=== PATIENT | male | born 1975 | race Caucasian/White ===

== ENCOUNTER 2017-01-23 18:23 | Emergency (ER) | payer BC ==
[2017-01-23] MEDS ORDERED: cefTRIAXone 1,000 MG in Lidocaine 1% 4 ML IM ONE (19:15)
[2017-01-23] MEDS ORDERED: Diphtheria,Pertussis(Acell),Tetanus Vaccine 0.5 ML Syringe IM ONE (19:15)
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
[2017-01-23] MEDS ORDERED: Lidocaine 1% 20 ML MDV ONE (19:45)
[2017-01-23 20:15] LABS: CHLORIDE,CL 105 mmol/L (98-110); SODIUM,NA 140 mmol/L (136-146)
[2017-01-23] MEDS ORDERED: Bacitracin Oint 1 GM U/D Packet ONE (21:08)
[2017-01-23 21:44] VITALS: BP 135/94
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
--- NOTE | 2017-01-25 11:06 | CR ---
EXAM DATE: 01/23/17 PATIENT'S AGE: 41 Patient: ABELINO BURKS Facility: [place], [place] Site . Site : 1975 Study: XRay Pelvis [id number]/7/2017 8:26:13 PM Ordering Physician: Erickson Marie Final Report: HISTORY: Pain. Comparison: None. Findings: The hip joints are preserved. No evidence for acute fracture or dislocation. Soft tissues are within normal. Dictated by Vivian Rothman MD @ Jan 23 2017 8:57PM (Electronic Signature) Report Signed by Proxy. [facility]
--- NOTE | 2017-01-25 11:07 | CR ---
EXAM DATE: 01/23/17 PATIENT'S AGE: 41 Patient: ABELINO BURKS Facility: [place], [place] Site . Site : 1975 Study: XRay Chest [id number]/7/2017 8:26:54 PM Ordering Physician: Erickson Marie Final Report: HISTORY: Pain. Comparison: None. Findings: Single frontal view of the chest. There is a round dense nodule in the right upper lobe suggestive of a granuloma. This could be confirmed with CT. The lungs are otherwise clear. Heart size and pulmonary vascularity are within normal limits. The bony thorax is intact. Dictated by Vivian Rothman MD @ Jan 23 2017 8:57PM (Electronic Signature) Report Signed by Proxy. [facility]
--- NOTE | 2017-01-25 11:08 | CR ---
EXAM DATE: 01/23/17 PATIENT'S AGE: 41 Patient: ABELINO BURKS Facility: [place], [place] Site . Site : 1975 Study: XRay Extremity Right hand [id number]/7/2017 9:00:13 PM Ordering Physician: Erickson Marie Final Report: INDICATION: Hand injury. Technique: 2 views right hand. Findings: Old fracture deformities involving the right 2nd, 4th and 5th metacarpals. Deformity of the distal right radius may be related to prior trauma or fracture. Mild to moderately displaced acute displaced fracture involving the base of the right 1st proximal phalanx resulting in a 1.1 cm free fracture fragment. Prominent soft tissue swelling in the right hand between the right thumb and index finger. Remainder negative. Dictated by Blade Best MD @ Jan 23 2017 9:19PM (Electronic Signature) Report Signed by Proxy. [facility]
== END 2017-01-23 21:30 ==
LOC: MW.ED 18:23
DX: S62.511A Displaced fracture of proximal phalanx of right thumb, initial encounter for closed fracture (principal); S61.411A Laceration without foreign body of right hand, initial encounter; S00.81XA Abrasion of other part of head, initial encounter; Z23 Encounter for immunization; F10.120 Alcohol abuse with intoxication, uncomplicated; V23.4XXA Motorcycle driver injured in collision with car, pick-up truck or van in traffic accident, initial encounter
CPT/HCPCS: 12002; 36415; 70450; 71010; 72125; 72170; 73120; 80053; 80305; 81001; 85025; 90471; 90715; 96372; 99285; G0480; J0696; L3807; 99283

== ENCOUNTER 2017-03-25 06:39 | Day surgery (SDC) | payer BC ==
[~2017-03-25 06:39] MED LIST: Sodium Chloride 0.9% 10 ML Syringe FLUSH PRN; Sodium Chloride 0.9% 2.5 ML Syringe FLUSH PRN; ceFAZolin 2 GM in Premix Bag 1 BAG IV ONE
[2017-03-25] MEDS ORDERED: Albuterol 0.083% 2.5 MG/3 ML Neb Soln NEB ONE (07:06)
[2017-03-25] MEDS ORDERED: Bupivacaine 0.5% 30 ML SDV ONE (07:18)
[2017-03-25] MEDS ORDERED: ceFAZolin 1 GM Vial ONE (07:18)
--- NOTE | 2017-03-25 07:23 | PCM.PREANE ---
Preanesthetic Assessment - Anesthesia/Transfusion/Family Hx Anesthesia History: Prior Anesthesia Without Reaction (wisdom teeth extractions) Family History of Anesthesia Reaction: No Transfusion History: No Prior Transfusion(s) - Review of Systems General: No Symptoms Pulmonary: No Symptoms Cardiovascular: No Symptoms Gastrointestinal: No Symptoms Neurological: No Symptoms Other: Reports: None - Physical Assessment NPO Status Date: 03/24/17 Height: 1.85 m Weight: 112.945 kg ASA Class: 2 Mental Status: Alert & Oriented x3 Airway Class: Mallampati = 2 Dentition: Reports: Broken Tooth/Teeth ROM/Head Extension: Full Lungs: Normal Respiratory Effort, Wheezing (some prolongued expiration and very few exp wheezes) Cardiovascular: Regular Rate, Regular Rhythm Other: full uribe, thick neck, snores at night - Allergies Allergies/Adverse Reactions: Allergies Allergy/AdvReac Type Severity Reaction Status Date / Time No Known Allergies Allergy Verified 01/23/17 19:07 - Anesthesia Plan Pre-Op Medication Ordered: Other (albuterol NMT) - Acknowledgements Anesthesia Type Planned: General Anesthesia Pt an Appropriate Candidate for the Planned Anesthesia: Yes Alternatives and Risks of Anesthesia Discussed w Pt/Guardian: Yes Pt/Guardian Understands and Agrees with Anesthesia Plan: Yes Additional Comments: PMH: presumed IRIS, smoker PreAnesthesia Questionnaire HEENT History: Reports: None Cardiovascular History: Reports: None Respiratory History: Reports: None Gastrointestinal History: Reports: None Genitourinary History: Reports: None Musculoskeletal History: Reports: None Neurological History: Reports: None Psychiatric History: Reports: None Endocrine/Metabolic History: Reports: Obesity/BMI 30+ Hematologic History: Reports: None Immunologic History: Reports: None Oncologic (Cancer) History: Reports: None Dermatologic History: Reports: None - Infectious Disease History Infectious Disease History: Reports: None - Past Surgical History Head Surgeries/Procedures: Reports: None HEENT Surgical History: Reports: Oral Surgery Other HEENT Surgeries/Procedures: wisdom teeth extraction - SUBSTANCE USE Smoking Status *Q: Current Every Day Smoker Tobacco Use Within Last Twelve Months: Cigarettes Recreational Drug Use History: No - HOME MEDS Home Medications: Home Meds . [No Known Home Meds] 01/23/17 [History] - CURRENT (IN HOUSE) MEDS Current Meds: Current Medications Sodium Chloride (Saline Flush) 10 ml FLUSH ASDIRECTED PRN PRN Reason: Keep Vein Open Sodium Chloride (Saline Flush) 2.5 ml FLUSH ASDIRECTED PRN PRN Reason: Keep Vein Open Discontinued Medications Albuterol (Proventil Neb Soln) 2.5 mg NEB ONETIME ONE Stop: 03/25/17 07:07 Cefazolin Sodium/Dextrose 2 gm (/ Premix) 50 mls @ 100 mls/hr IV ONETIME ONE Stop: 03/23/17 14:56
[2017-03-25] MEDS ORDERED: Lactated Ringers 1,000 ML IV SCH (07:30)
[2017-03-25] MEDS ORDERED: fentaNYL 100 MCG/2 ML SDV ONE (07:37)
[2017-03-25] MEDS ORDERED: Dexamethasone 4 MG/ML 5 ML MDV ONE (07:37)
[2017-03-25] MEDS ORDERED: Rocuronium 10 MG/ML 10 ML Syringe ONE (07:37)
[2017-03-25] MEDS ORDERED: Ondansetron 4 MG/2 ML SDV ONE (07:37)
[2017-03-25] MEDS ORDERED: Midazolam 1 MG/ML 2 ML SDV ONE (07:37)
[2017-03-25] MEDS ORDERED: Succinylcholine/Normal Saline 200 MG/10 ML Syringe ONE (07:37)
[2017-03-25] MEDS ORDERED: Propofol 200 MG/20 ML SDV ONE (07:37)
[2017-03-25] MEDS ORDERED: diphenhydrAMINE 50 MG/ML SDV ONE (08:01)
[2017-03-25] MEDS ORDERED: HYDROmorphone 2 MG/ML Syringe ONE (08:49)
[2017-03-25] MEDS ORDERED: Neostigmine Methylsulfate 1 MG/ML 5 ML Syringe ONE (09:00)
[2017-03-25] MEDS ORDERED: ePHEDrine 50 MG/ML SDV ONE (09:36)
[2017-03-25] MEDS ORDERED: Sodium Chloride 0.9% 20 ML ONE (09:37)
--- NOTE | 2017-03-25 09:51 | PCM.OPNOTE ---
- General Post-Op/Procedure Note Date of Surgery/Procedure: 03/25/17 Operative Procedure(s): Umbilical hernia Findings: 1cm fascial defect but baseball sized hernia sac containing omentum Pre Op Diagnosis: Umbilical hernia Post-Op Diagnosis: same Anesthesia Technique: General ET Tube Primary Surgeon: Melonie IBARRA in mLs: 25 Condition: Good
--- NOTE | 2017-03-25 11:05 | PCM.POSTAN ---
POST ANESTHESIA ASSESSMENT - MENTAL STATUS Mental Status: Alert, Oriented - RESPIRATORY Respiratory Status: Respiratory Rate WNL, Airway Patent, O2 Saturation Stable - CARDIOVASCULAR CV Status: Pulse Rate WNL, Blood Pressure Stable - GASTROINTESTINAL GI Status: No Symptoms - POST OP HYDRATION Hydration Status: Adequate & Stable
[2017-03-25 15:15] VITALS: BP 122/66
--- NOTE | 2017-03-25 17:01 | OR ---
SURGEON: LEWIS WOODRUFF MD DATE OF PROCEDURE: 03/25/2017 PREOPERATIVE DIAGNOSIS: Umbilical hernia. POSTOPERATIVE DIAGNOSIS: Umbilical hernia. PROCEDURE PERFORMED: Umbilical hernia repair with omentectomy. ANESTHESIA: General endotracheal anesthesia. FLUIDS: 2 L. URINE OUTPUT: Not applicable. ESTIMATED BLOOD LOSS: 25 mL. FINDINGS: 1 cm fascial defect just inferior to the umbilical stalk with a large hernia sac containing omentum. COMPLICATIONS: None. INDICATIONS: The patient is a 41-year-old male, who presents with an enlarging umbilical hernia. The patient was a heavy smoker, heavy drinker, and chewed Chewing tobacco. Since it was overall asymptomatic, I encouraged him to start smoking cessation plan and to stop drinking and establish primary care. The patient established primary care, quit drinking alcohol, quit chewing tobacco, and cut down significantly on his smoking. He came back to see me in clinic and was doing much better, but his umbilical hernia had continued to enlarge. A CT showed a small fat containing periumbilical hernia. A decision was made to perform a repair of this hernia. We discussed the procedure as well as expected perioperative course. We discussed the risks, including bleeding, infection, or damage to surrounding structures. The patient verbalized understanding and wishes to proceed. PROCEDURE IN DETAIL: The patient was brought into the OR and placed on the OR table in supine position. A time-out was completed verifying the patient's name, age, date of , allergies, and procedure to be performed. General endotracheal anesthesia was induced. The abdomen was prepped and draped in the usual standard fashion. Upon inspection the umbilical hernia appeared infraumbilical. A midline infraumbilical incision was made and I then extended around the umbilicus towards the right side. 0.5% Marcaine plain was used to anesthetize the tissues around this area. Cautery was used to dissect down to the level of subcutaneous fat. Immediately I encountered a very large hernia sac. Metzenbaum scissors and blunt dissection were used to dissect this hernia sac free from the surrounding subcutaneous fat. The hernia sac was approximately the size of a baseball. Care was taken to preserve the umbilical stalk which was at the 11 o'clock position along the hernia sac. Once the hernia sac was cleared of all surrounding tissue and down to the level of the fascia, I sharply entered it at its apex. The hernia sac was then dissected down to the level of fascia. The hernia sac contained a large amount of omentum. The fascial defect was approximately 1 cm in size. Using a Harmonic device, I resected the hernia sac free from the surrounding fascia and sent it to pathology. I attempted to reduce the omentum back into the abdomen, but given the small fascial defect and a large amount of omentum I was unable to do so. Harmonic device was used to transect about half of the omentum contained within the hernia sac. This was sent to pathology with the previously resected hernia sac. After resection of this omentum, I inspected my line of dissection and found it to be hemostatic. I was then able to easily reduce the remaining omentum into the abdomen without difficulty. The fascial defect measured 1 cm in diameter. The decision was made to close this primarily. 0 Ethibond sutures were placed in interrupted fashion along the fascia effectively closing it. Great care was taken to elevate the fascia to avoid any secondary injury to the underlying bowel. Once the defect was closed, I inspected my surrounding tissues for hemostasis. Hemostasis was achieved using electrocautery. Interrupted 3-0 Vicryl were used to bring the subcutaneous fat back together and to close the defect left by the hernia sac. The skin overlying the hernia sac appeared dusky and this was trimmed back to healthy well-vascularized appearing skin. The skin was then closed using running 4-0 Monocryl suture and interrupted stitches. Once my skin was closed, I reinspected my wound, but found an area of the infraumbilical skin that appeared somewhat ischemic. I took down my 4-0 suture and made a small triangular shaped incision along the umbilical skin thereby resecting the dusky appearing tissue. I then re-sutured this closed using a running and interrupted 4-0 Monocryl sutures. At the end of this closure of the skin, all appeared healthy and well perfused. Steri-Strips and sterile dressings were applied. The patient tolerated the procedure well and was taken to the PACU in stable condition. BERNABE LAWRENCE /[id number]
== END 2017-03-25 11:40 | disposition home or self-care (01) ==
LOC: MW.SDS 06:39
PROVIDERS: ATTEND Surgery
DX: K42.9 Umbilical hernia without obstruction or gangrene (principal); E78.5 Hyperlipidemia, unspecified; E66.9 Obesity, unspecified; F17.210 Nicotine dependence, cigarettes, uncomplicated; Z68.30 Body mass index [BMI] 30.0-30.9, adult
CPT/HCPCS: 49585; 88302; J1100; J1170; J1200; J2250; J2405; J3010; J7120; 00830; J0690; J2704

== ENCOUNTER 2017-12-02 10:08 | Observation (INO) | payer BC ==
[~2017-12-02 10:08] MED LIST changes: +Bupivacaine 0.5% 30 ML SDV ONE; +ceFAZolin 1 GM Vial ONE
[2017-12-02] MEDS: Lactated Ringers 1,000 ML IV SCH ×4 (10:50→21:50)
--- NOTE | 2017-12-02 11:23 | PCM.PREANE ---
Preanesthetic Assessment - Anesthesia/Transfusion/Family Hx Anesthesia History: Prior Anesthesia Without Reaction Family History of Anesthesia Reaction: No Transfusion History: No Prior Transfusion(s) Intubation History: Unknown - Review of Systems General: No Symptoms Pulmonary: No Symptoms Cardiovascular: No Symptoms Gastrointestinal: No Symptoms Neurological: No Symptoms Other: Reports: None - Physical Assessment O2 Sat by Pulse Oximetry: 97 Respiratory Rate: 16 Vital Signs: Last Vital Signs Temp 36.1 C 12/02/17 10:43 Pulse 71 12/02/17 10:43 Resp 16 12/02/17 10:43 BP 117/76 12/02/17 10:43 Pulse Ox 97 12/02/17 10:43 Height: 1.85 m Weight: 118.388 kg ASA Class: 2 Mental Status: Alert & Oriented x3 Airway Class: Mallampati = 2 Dentition: Reports: Normal Dentition Thyro-Mental Finger Breadths: 3 Mouth Opening Finger Breadths: 2 ROM/Head Extension: Full Lungs: Clear to Auscultation, Normal Respiratory Effort Cardiovascular: Regular Rate, Regular Rhythm - Allergies Allergies/Adverse Reactions: Allergies Allergy/AdvReac Type Severity Reaction Status Date / Time No Known Allergies Allergy Verified 12/02/17 10:52 - Blood Blood Available: No - Anesthesia Plan Pre-Op Medication Ordered: None - Acknowledgements Anesthesia Type Planned: General Anesthesia Pt an Appropriate Candidate for the Planned Anesthesia: Yes Alternatives and Risks of Anesthesia Discussed w Pt/Guardian: Yes Pt/Guardian Understands and Agrees with Anesthesia Plan: Yes PreAnesthesia Questionnaire HEENT History: Reports: Hard of Hearing Cardiovascular History: Reports: High Cholesterol Respiratory History: Reports: None Gastrointestinal History: Reports: None Genitourinary History: Reports: None Musculoskeletal History: Reports: Fracture Other Musculoskeletal History: hx of fx hand Neurological History: Reports: None Psychiatric History: Reports: None Endocrine/Metabolic History: Reports: Obesity/BMI 30+ Hematologic History: Reports: None Immunologic History: Reports: None Oncologic (Cancer) History: Reports: None Dermatologic History: Reports: None - Infectious Disease History Infectious Disease History: Reports: None - Past Surgical History Head Surgeries/Procedures: Reports: None HEENT Surgical History: Reports: Oral Surgery Other HEENT Surgeries/Procedures: wisdom teeth GI Surgical History: Reports: Other (See Below) Other GI Surgeries/Procedures: hx of Umbilical Hernia Repair (february - re- occured - SUBSTANCE USE Smoking Status *Q: Current Every Day Smoker (down to few cigarettes per day) Tobacco Use Within Last Twelve Months: Smokeless Tobacco Recreational Drug Use History: No - HOME MEDS Home Medications: Home Meds . [No Known Home Meds] 01/23/17 [History] - CURRENT (IN HOUSE) MEDS Current Meds: Current Medications Lactated Ringer's (Ringers, Lactated) 1,000 mls @ 125 mls/hr IV ASDIRECTED [facility] Last Admin: 12/02/17 10:50 Dose: 125 mls/hr Sodium Chloride (Saline Flush) 10 ml FLUSH ASDIRECTED PRN PRN Reason: Keep Vein Open Sodium Chloride (Saline Flush) 2.5 ml FLUSH ASDIRECTED PRN PRN Reason: Keep Vein Open Discontinued Medications Bupivacaine HCl (Marcaine 0.5%) Confirm Administered Dose 30 ml .ROUTE .STK-MED ONE Stop: 12/02/17 08:12 Cefazolin Sodium (Ancef) Confirm Administered Dose 1 gm .ROUTE .STK-MED ONE Stop: 12/02/17 08:11 Cefazolin Sodium/Dextrose 2 gm (/ Premix) 50 mls @ 100 mls/hr IV ONETIME ONE Stop: 11/29/17 09:09
[2017-12-02] MEDS ORDERED: Midazolam 1 MG/ML 2 ML SDV ONE (11:31)
[2017-12-02] MEDS ORDERED: fentaNYL 100 MCG/2 ML SDV ONE ×3 (11:31→13:44)
[2017-12-02] MEDS ORDERED: Lidocaine 2% 5 ML SDV ONE (11:31)
[2017-12-02] MEDS ORDERED: Propofol 200 MG/20 ML SDV ONE ×2 (11:31→12:51)
[2017-12-02] MEDS ORDERED: fentaNYL 250 MCG/5 ML SDV ONE (11:31)
[2017-12-02] MEDS ORDERED: Sodium Chloride 0.9% 20 ML ONE (11:40)
[2017-12-02] MEDS ORDERED: ceFAZolin 1 GM Vial ONE (11:40)
[2017-12-02] MEDS ORDERED: Ketorolac 30 MG/ML SDV ONE (11:41)
[2017-12-02] MEDS ORDERED: Ondansetron 4 MG/2 ML SDV ONE (11:41)
[2017-12-02] MEDS ORDERED: Rocuronium 10 MG/ML 10 ML Syringe ONE (11:41)
[2017-12-02] MEDS ORDERED: Sugammadex Sodium 200 MG/2 ML VIAL ONE (11:43)
[2017-12-02] MEDS ORDERED: ePHEDrine 50 MG/ML SDV ONE (12:15)
[2017-12-02] MEDS ORDERED: fentaNYL 100 MCG/2 ML SDV IVPUSH PRN (12:23)
[2017-12-02] MEDS ORDERED: Octyl 2-Cyanoacrylate 1 Tube ONE (13:59)
[2017-12-02] MEDS ORDERED: Acetaminophen 1,000 MG in Premix Bag 1 BAG IV ONE (14:30)
[2017-12-02] MEDS ORDERED: diphenhydrAMINE 50 MG/ML SDV IVPUSH PRN (14:31)
--- NOTE | 2017-12-02 14:31 | PCM.OPNOTE ---
- General Post-Op/Procedure Note Date of Surgery/Procedure: 12/02/17 Operative Procedure(s): Recurrent umbilical hernia repair Findings: 9 x 5 cm ventral/umbilical fascial defect. Hernia sac containing omentum and small bowel. Pre Op Diagnosis: Recurrent umbilical hernia Post-Op Diagnosis: same Anesthesia Technique: General ET Tube Primary Surgeon: Melonie Day Fluid Replacement, Intraop: 2,700 Output, Urine Amount: 150 EBL in mLs: 50 Surgical Drain/Tube Type: Jose Mckinney Flat Drain (10Fr) Condition: Good
[2017-12-02] MEDS ORDERED: HYDROmorphone/Normal Saline 6 MG/30 ML PCA Vial IV PRN (14:38)
[2017-12-02] MEDS ORDERED: Morphine PF 30 MG/30 ML PCA Vial ONE (15:03)
[2017-12-02] MEDS: Morphine PF 30 MG/30 ML PCA Vial IV SCH ×2 (15:10→23:48)
--- NOTE | 2017-12-02 15:18 | PCM.POSTAN ---
POST ANESTHESIA ASSESSMENT - MENTAL STATUS Mental Status: Alert, Oriented Free Text/Narrative:: Resting comfortably Awakens easily to verbal - VITAL SIGNS Pulse Rate: 75 SaO2: 97 (2lpm NC) Resp Rate: 12 Blood Pressure: 129/80 - RESPIRATORY Respiratory Status: Respiratory Rate WNL, Airway Patent, O2 Saturation Stable, Supplemental Oxygen - CARDIOVASCULAR CV Status: Pulse Rate WNL, Blood Pressure Stable - GASTROINTESTINAL GI Status: No Symptoms - PAIN Pain Score: 4 - POST OP HYDRATION Hydration Status: Adequate & Stable
[2017-12-02] MEDS: Clindamycin Phosphate in D5W 600 MG in Premix Bag 1 BAG IV SCH ×4 (16:06→21:49)
--- NOTE | 2017-12-02 16:38 | OR ---
SURGEON: LEWIS WOODRUFF MD DATE OF PROCEDURE: 12/02/2017 PREOPERATIVE DIAGNOSIS: Recurrent umbilical hernia. POSTOPERATIVE DIAGNOSIS: Recurrent umbilical hernia. PROCEDURE PERFORMED: Recurrent umbilical hernia repair with mesh. PRODUCT DELIVERY SPECIALIST: Lewis Crowley M.D. FLUIDS: 2700 mL of crystalloid. URINE OUTPUT: 150 mL. ESTIMATED BLOOD LOSS: 50 mL. FINDINGS: 9 x 5 cm umbilical hernia defect that extended along the superior midline. Hernia sac contained omentum and small bowel. COMPLICATIONS: None. INDICATIONS: The patient is a 42-year-old male, who underwent an uncomplicated umbilical hernia repair last fall. This spring, the patient developed pain around his umbilicus and shortly thereafter noticed a large bulge. This bulge has been getting larger in size and became painful. A CT of the abdomen and pelvis showed a large ventral abdominal wall hernia around the umbilicus containing omentum and small bowel. The decision was made to proceed with an open umbilical hernia repair with mesh. The patient and I discussed the procedure, expected perioperative course, and risks including bleeding, infection, or damage to surrounding structures. The patient verbalized understanding and wishes to proceed. PROCEDURE IN DETAIL: The patient was brought to the OR and placed on the OR table in supine position. A time-out was completed verifying the patient's name, age, date of , allergies, and procedure to be performed. General endotracheal anesthesia was induced. The abdomen was prepped and draped in usual standard fashion. I anesthetized the midline with 0.5% Marcaine plain. A 10 blade was used to make a midline incision starting supraumbilically and going laterally around the right side of the umbilicus. Cautery was used and then dissected down to the level of the subcutaneous fat. I then dissected through this until I encountered the hernia sac. I then used Metzenbaum scissors to free up this hernia sac from the surrounding subcutaneous fat down to the level of fascia. Cautery was used to achieve hemostasis throughout this process. Once the hernia sac was completely freed from the surrounding tissues, it was entered sharply from the top. I encountered a stretched out peritoneal sac. This was opened with the Metzenbaum scissors and small bowel was encountered. The omentum and small bowel that were contained in the hernia sac fell away and reduced easily into the abdomen. The hernia sac was then excised from healthy fascia and passed off the field. The fascial defect was then measured and found to be 9 cm vertically and 5 cm horizontally. A 12 x 8 cm Dulex piece of mesh was brought into the field. It was placed as an underlay. Interrupted 0 Ethibond sutures were then placed in circumferential fashion around the mesh securing it to healthy fascia. Great care was taken to avoid damage to the underlying bowel and omentum. Once these were circumferentially in place, they were tied down. The overlying fascia was then closed with interrupted 0 Ethibond sutures to provide tissue coverage over the top of the mesh. The wound was irrigated. A 10-Azeri flat Jose Mckinney drain was placed over the fascial closure. This was brought out laterally through the skin and secured with ethibond sutures The umbilical skin was then tacked down to the fascia using a 3-0 Vicryl suture. The overlying subcutaneous fat and skin were closed in layers using interrupted 3-0 Vicryl sutures. The skin was then closed with a running 4-0 Monocryl stitch. Dermabond was applied. Sterile dressings were placed over the wound and bulb suction placed on the drain. The patient tolerated the procedure well and was transferred to the PACU in stable condition where an abdominal binder was placed. BERNABE LAWRENCE /[id number] [place]
[2017-12-02] MEDS: Cyclobenzaprine 10 MG Tab PO SCH (21:49)
--- NOTE | 2017-12-03 00:28 | PCM48HPAN ---
Post Anesthesia Note - EVALUATION WITHIN 48HRS OF ANESTHETIC Vital Signs in Normal Range: Yes Patient Participated in Evaluation: Yes Respiratory Function Stable: Yes Airway Patent: Yes Cardiovascular Function Stable: Yes Hydration Status Stable: Yes Pain Control Satisfactory: Yes Nausea and Vomiting Control Satisfactory: Yes Mental Status Recovered: Yes Pulse Rate: 75 Resp Rate: 20 Blood Pressure: 129/80
[2017-12-03] MEDS: Clindamycin Phosphate in D5W 600 MG in Premix Bag 1 BAG IV SCH ×4 (02:54→10:02)
[2017-12-03] MEDS: Cyclobenzaprine 10 MG Tab PO SCH ×2 (05:15→14:47)
[2017-12-03] MEDS ORDERED: Acetaminophen/oxyCODONE 325-10 MG Tab PO PRN (07:12)
[2017-12-03] MEDS ORDERED: Morphine 4 MG/ML Syringe IVPUSH PRN (07:12)
[2017-12-03] MEDS ORDERED: Enoxaparin 40 MG/0.4 ML Syringe SUBCUT SCH (07:15)
[2017-12-03] MEDS ORDERED: Polyethylene Glycol 3350 Powder 17 GM Packet PO SCH (09:00)
[2017-12-03] MEDS ORDERED: Albuterol/Ipratropium 3.0-0.5 MG/3 ML Neb Soln NEB PRN (09:39)
[2017-12-03 14:10] VITALS: BP 122/79
[2017-12-03] MEDS ORDERED: Clindamycin Phosphate in D5W 50 ML ONE (14:19)
--- NOTE | 2017-12-03 14:32 | CR ---
EXAMINATION: Portable chest radiograph. HISTORY: Wheezing. FINDINGS: The trachea is midline. The cardiomediastinal silhouette is within normal limits. No pulmonary infilt rates, effusions or pneumothorax. Able small 7 mm nodule in the right midlung, likely a granuloma. Mi ld interstitial prominence. Osseous structures appear unremarkable. IMPRESSION: No acute cardiopulmonary process.
[2017-12-03] MEDS ORDERED: Albuterol 8 GM Inhaler INH PRN (17:02)
--- NOTE | 2017-12-03 17:10 | PCM.DCSUM1 ---
Discharge Summary - Hospital Course Free Text/Narrative:: Patient is a 42 year old male who presented for an elective recurrent umbilical hernia repair. The hernia was large and required mesh. he was admitted overnight for close monitoring and pain control. He tolerated clears well and pain was well controlled on MS MAJOR CASE DETECTIVE overnight. This morning he was transitioned to po percocet and given a regular diet. He tolerated the diet without difficulty. His pain was well controlled on percocet. He was noted to be wheezing this afternoon. CXR was performed that appeared normal. A duoneb was given and the patient improved. He sated well on room air. He was ambulating without difficulty. A drain was left in place after surgery. Becasue of this, he was kept on antibiotics. The drain put out about 80-100ml since surgery. His output this afternoon was decreased. The drain output was scant and serosanguinous so it was removed and dressings were applied. The wound dressings were removed and the wound appears to be healing well. No evidence of inflammation. He feels well and was discharged home. - Discharge Data Discharge Date: 12/03/17 Discharge Disposition: Home, Self-Care 01 Condition: Good - Discharge Diagnosis/Problem(s) (1) Umbilical hernia SNOMED Code(s): 903338659 ICD Code: K42.9 - UMBILICAL HERNIA WITHOUT OBSTRUCTION OR GANGRENE Status: Acute Current Visit: No - Patient Summary/Data Operative Procedure(s) Performed: Recurrent umbilical hernia repair - Patient Instructions Diet: Regular Diet as Tolerated Activity: No Lifting Over 20 Pounds (for 6 weeks), Rest and Relax Today Driving: Do Not Drive (for one week ) Showering/Bathing: No Showering (for two days ), No Tub Bathing/Swimming (for two weeks ) Wound/Incision Care: Keep Operative Site/Wound Site Clean and Dry Notify Provider of: Fever, Increased Pain, Swelling and Redness, Drainage, Nausea and/or Vomiting - Discharge Plan *PRESCRIPTION DRUG MONITORING PROGRAM REVIEWED*: Yes *COPY OF PRESCRIPTION DRUG MONITORING REPORT IN PATIENT WEI: Yes Prescriptions/Med Rec: Cyclobenzaprine [Flexeril] 10 mg PO TID #30 tablet Polyethylene Glycol 3350 [MiraLAX] 17 gm PO DAILY #14 packet Home Medications: Home Meds Albuterol [Ventolin HFA] 8.5 gm INH Q4H PRN inhaler 12/03/17 [Rx] Cyclobenzaprine [Flexeril] 10 mg PO TID #30 tablet 12/03/17 [Rx] Polyethylene Glycol 3350 [MiraLAX] 17 gm PO DAILY #14 packet 12/03/17 [Rx] Referrals: Melonie Day MD [Physician] - 12/15/17 1:00 pm - General Info Date of Service: 12/03/17 Functional Status: Reports: Pain Controlled, Tolerating Diet, Ambulating, Urinating - Review of Systems General: Reports: No Symptoms Pulmonary: Reports: Wheezing Cardiovascular: Reports: No Symptoms Gastrointestinal: Reports: No Symptoms Genitourinary: Reports: No Symptoms Musculoskeletal: Reports: No Symptoms Skin: Reports: No Symptoms - Patient Data Vitals - Most Recent: Last Vital Signs Temp 36.9 C 12/03/17 12:00 Pulse 93 12/03/17 12:00 Resp 16 12/03/17 12:00 BP 122/79 12/03/17 12:00 Pulse Ox 93 L 12/03/17 12:00 Weight - Most Recent: 118.388 kg I&O - Last 24 hours: Intake & Output 12/03/17 12/03/17 12/03/17 06:59 14:59 22:59 Intake Total 3450 Output Total 1900 50 Balance 1550 -50 Lab Results - Last 24 hrs: Laboratory Results - last 24 hr 12/03/17 Range/Units 11:35 POC Glucose 119 H (60-110) mg/dL Med Orders - Current: Current Medications Albuterol (Ventolin Hfa) 8.5 gm INH Q4H PRN PRN Reason: Wheezing Albuterol/Ipratropium (Duoneb 3.0-0.5 Mg/3 Ml) 3 ml NEB Q4HRRT PRN PRN Reason: Wheezing Last Admin: 12/03/17 09:55 Dose: 3 ml Cyclobenzaprine HCl (Flexeril) 10 mg PO TID [facility] Last Admin: 12/03/17 14:47 Dose: 10 mg Diphenhydramine HCl (Benadryl) 25 mg IVPUSH Q4H PRN PRN Reason: Itching Enoxaparin Sodium (Lovenox) 40 mg SUBCUT Q24H [facility] Last Admin: 12/03/17 10:02 Dose: 40 mg Lactated Ringer's (Ringers, Lactated) 1,000 mls @ 125 mls/hr IV ASDIRECTED [facility] Last Infusion: 12/02/17 15:41 Dose: Infused Clindamycin Phosphate 600 mg/ (Premix) 50 mls @ 100 mls/hr IV Q6H [facility] Last Admin: 12/03/17 10:02 Dose: 100 mls/hr Lactated Ringer's (Ringers, Lactated) 1,000 mls @ 125 mls/hr IV ASDIRECTED [facility] Last Admin: 12/02/17 21:50 Dose: 125 mls/hr Morphine Sulfate (Morphine) 4 mg IVPUSH Q2H PRN PRN Reason: Abdominal Pain Oxycodone/Acetaminophen (Percocet 325-10 Mg) 2 tab PO Q4H PRN PRN Reason: Abdominal Pain Last Admin: 12/03/17 09:55 Dose: 2 tab Polyethylene Glycol (Miralax) 17 gm PO DAILY [facility] Last Admin: 12/03/17 10:02 Dose: 17 gm Sodium Chloride (Saline Flush) 10 ml FLUSH ASDIRECTED PRN PRN Reason: Keep Vein Open Sodium Chloride (Saline Flush) 2.5 ml FLUSH ASDIRECTED PRN PRN Reason: Keep Vein Open Discontinued Medications Bupivacaine HCl (Marcaine 0.5%) Confirm Administered Dose 30 ml .ROUTE .STK-MED ONE Stop: 12/02/17 08:12 Cefazolin Sodium (Ancef) Confirm Administered Dose 1 gm .ROUTE .STK-MED ONE Stop: 12/02/17 08:11 Cefazolin Sodium (Ancef) Confirm Administered Dose 2 gm .ROUTE .STK-MED ONE Stop: 12/02/17 11:41 Ephedrine Sulfate (Ephedrine Sulfate) Confirm Administered Dose 50 mg .ROUTE .STK-MED ONE Stop: 12/02/17 12:16 Fentanyl (Sublimaze) Confirm Administered Dose 100 mcg .ROUTE .STK-MED ONE Stop: 12/02/17 11:32 Fentanyl (Sublimaze) Confirm Administered Dose 250 mcg .ROUTE .STK-MED ONE Stop: 12/02/17 11:32 Fentanyl (Sublimaze) Confirm Administered Dose 100 mcg .ROUTE .STK-MED ONE Stop: 12/02/17 11:37 Fentanyl (Sublimaze) 50 mcg IVPUSH Q5M PRN PRN Reason: Pain (severe 7-10) Stop: 12/03/17 12:23 Last Admin: 12/02/17 14:50 Dose: 50 mcg Fentanyl (Sublimaze) Confirm Administered Dose 100 mcg .ROUTE .STK-MED ONE Stop: 12/02/17 13:45 Hydromorphone HCl (Dilaudid Enamel Machine Operator 6 Mg In Ns 30 Ml) 6 mg IV ASDIRECTED PRN; Protocol PRN Reason: Abdominal Pain Cefazolin Sodium/Dextrose 2 gm (/ Premix) 50 mls @ 100 mls/hr IV ONETIME ONE Stop: 11/29/17 09:09 Sodium Chloride (Normal Saline) Confirm Administered Dose 20 mls @ as directed .ROUTE .STK-MED ONE Stop: 12/02/17 11:41 Acetaminophen 1,000 mg/ Premix 100 mls @ 400 mls/hr IV NOW ONE Stop: 12/02/17 14:44 Last Admin: 12/02/17 14:40 Dose: 400 mls/hr Acetaminophen (Ofirmev) Confirm Administered Dose 100 mls @ as directed IV .STK- MED ONE Stop: 12/02/17 14:40 Clindamycin Phosphate (Cleocin In D5w) Confirm Administered Dose 50 mls @ as directed .ROUTE .STK-MED ONE Stop: 12/03/17 14:20 Ketorolac Tromethamine (Toradol) Confirm Administered Dose 30 mg .ROUTE .STK- MED ONE Stop: 12/02/17 11:42 Lidocaine (Xylocaine-Mpf 2%) Confirm Administered Dose 10 ml .ROUTE .STK-MED ONE Stop: 12/02/17 11:32 Midazolam HCl (Versed 1 Mg/Ml) Confirm Administered Dose 2 mg .ROUTE .STK-MED ONE Stop: 12/02/17 11:32 Morphine Sulfate (Morphine Enamel Machine Operator 30 Mg In 30 Ml) Confirm Administered Dose 30 mg .ROUTE .STK-MED ONE Stop: 12/02/17 15:04 Last Admin: 12/02/17 16:06 Dose: Not Given Morphine Sulfate (Morphine Enamel Machine Operator 30 Mg In 30 Ml) 30 mg IV DAILY [facility]; Protocol Last Admin: 12/02/17 23:48 Dose: 30 mg Octyl Cyanoacrylate (Dermabond Advance) Confirm Administered Dose 1 applic .ROUTE .STK-MED ONE Stop: 12/02/17 14:00 Ondansetron HCl (Zofran) Confirm Administered Dose 8 mg .ROUTE .STK-MED ONE Stop: 12/02/17 11:42 Propofol (Diprivan 20 Ml) Confirm Administered Dose 400 mg .ROUTE .STK-MED ONE Stop: 12/02/17 11:32 Propofol (Diprivan 20 Ml) Confirm Administered Dose 400 mg .ROUTE .STK-MED ONE Stop: 12/02/17 12:52 Rocuronium [place] (Zemuron) Confirm Administered Dose 100 mg .ROUTE .STK-MED ONE Stop: 12/02/17 11:42 Sugammadex Sodium (Bridion) Confirm Administered Dose 200 mg .ROUTE .STK-MED ONE Stop: 12/02/17 11:44 - Exam Quality Assessment: Reports: Supplemental Oxygen General: Reports: Alert, Oriented Lungs: Reports: Normal Respiratory Effort, Wheezing (expiratory wheezing ) Cardiovascular: Reports: Regular Rate GI/Abdominal Exam: Soft, Non-Tender, No Abnormal Bruit, Distended (mild ). No: Guarding, Rigid, Rebound Back Exam: Reports: Normal Inspection, Full Range of Motion Wound/Incisions: Reports: Healing Well, Dressing Dry and Intact, No Drainage
== END 2017-12-03 17:35 | disposition home or self-care (01) ==
LOC: MW.SDS 10:08 → MW.MS 15:53
PROVIDERS: ADMIT Surgery; ATTEND Surgery
DX: K42.9 Umbilical hernia without obstruction or gangrene (principal); F10.10 Alcohol abuse, uncomplicated; E78.5 Hyperlipidemia, unspecified; E66.9 Obesity, unspecified; Z68.34 Body mass index [BMI] 34.0-34.9, adult; Z79.899 Other long term (current) drug therapy; Z87.891 Personal history of nicotine dependence
CPT/HCPCS: 49585; 71045; 82962; A9270; J0131; J0690; J1650; J2250; J2274; J2405; J2704; J3010; J3490; J7120; 00752; 88302; C1781; J1885; J7620-GY

== ENCOUNTER 2019-01-01 13:08 | Emergency (ER) | payer BC ==
--- NOTE | 2019-01-01 13:26 | EDM.PDOC ---
ED HPI GENERAL MEDICAL PROBLEM - General Chief Complaint: Laceration Stated Complaint: CUT RIGHT EAR Time Seen by Provider: 01/01/19 13:10 Source of Information: Reports: Patient History Limitations: Reports: No Limitations - History of Present Illness INITIAL COMMENTS - FREE TEXT/NARRATIVE: History of present illness: []Patient cut his ear on a motor home door prior to arrival. Review of systems: As per history of present illness and below otherwise all systems reviewed and negative. Past medical history: As per history of present illness and as reviewed below otherwise noncontributory. Surgical history: As per history of present illness and as reviewed below otherwise noncontributory. Social history: No reported history of drug or alcohol abuse. Family history: As per history of present illness and as reviewed below otherwise noncontributory. Physical exam: General: Well developed, well nourished in NAD HEENT: Right ear with laceration through the cartilage, no active bleeding, normocephalic, pupils reactive, negative for conjunctival pallor or scleral icterus, mucous membranes moist, throat clear, neck supple, nontender, trachea midline. Lungs: Clear to auscultation, breath sounds equal bilaterally, chest nontender. Heart: S1S2, regular, negative for clicks, rubs, or JVD. Abdomen: NABS, Soft, nondistended, nontender. Negative for masses or hepatosplenomegaly. Negative for costovertebral tenderness. Pelvis: Stable nontender. Genitourinary: Deferred. Rectal: Deferred. Extremities: Atraumatic, negative for cords or calf pain. Neurovascular unremarkable. Neuro: Awake, alert, oriented. Cranial nerves II through XII unremarkable. Cerebellum unremarkable. Motor and sensory unremarkable throughout. Exam nonfocal. Skin:warm and dry Diagnostics: None Therapeutics: Wound sutured ED Course: Stable Impression: Ear laceration through cartilage Prescriptions: None Plan: Follow-up with ENT or plastics Definitive disposition and diagnosis as appropriate pending reevaluation and review of above. Right Ear Pain Score (Numeric/FACES): 1 - Related Data Allergies Allergy/AdvReac Type Severity Reaction Status Date / Time No Known Allergies Allergy Verified 01/01/19 13:16 Home Meds: Home Meds . [No Known Home Meds] 01/01/19 [History] Past Medical History HEENT History: Reports: Hard of Hearing Cardiovascular History: Reports: High Cholesterol Respiratory History: Reports: None Gastrointestinal History: Reports: None Genitourinary History: Reports: None Musculoskeletal History: Reports: Fracture Other Musculoskeletal History: hx of fx hand Neurological History: Reports: None Psychiatric History: Reports: None Endocrine/Metabolic History: Reports: Obesity/BMI 30+ Hematologic History: Reports: None Immunologic History: Reports: None Oncologic (Cancer) History: Reports: None Dermatologic History: Reports: None - Infectious Disease History Infectious Disease History: Reports: Chicken Pox - Past Surgical History Head Surgeries/Procedures: Reports: None HEENT Surgical History: Reports: Oral Surgery Other HEENT Surgeries/Procedures: wisdom teeth GI Surgical History: Reports: Other (See Below) Other GI Surgeries/Procedures: hx of Umbilical Hernia Repair (february - re- occured Social & Family History - Family History Family Medical History: Noncontributory - Tobacco Use Smoking Status *Q: Current Every Day Smoker Years of Tobacco use: 30 Packs/Tins Daily: 1 - Caffeine Use Caffeine Use: Reports: Coffee - Alcohol Use Days Per Week of Alcohol Use: 7 Number of Drinks Per Day: 2 Total Drinks Per Week: 14 - Recreational Drug Use Recreational Drug Use: No ED ROS GENERAL - Review of Systems Review Of Systems: See Below ED EXAM, SKIN/RASH Exam: See Below ED SKIN PROCEDURES - Laceration/Wound Repair Lobe laceration Appearance: Subcutaneous, Other (Cartilage lacerated through and through) Local Anesthesia - Lidocaine (Xylocaine): 1% Plain Local Anesthetic Volume: 1cc Skin Prep: Chlorhexidine (Hibiciens) Closed with: Sutures Lac/Wound length In cm: 3 Suture Size: 5-0 Suture Type: Nylon Drain Placement: No Sterile Dressing Applied: Nurse Tetanus Status Addressed: Yes Complications: No Course - Vital Signs Last Recorded V/S: Last Vital Signs Temp 97.0 F 01/01/19 13:17 Pulse 90 01/01/19 13:17 Resp 17 01/01/19 13:17 BP 151/102 H 01/01/19 13:17 Pulse Ox 96 01/01/19 13:17 - Orders/Labs/Meds Meds: Medications Discontinued Medications Generic Name Dose Route Start Last Admin Trade Name Freq PRN Reason Stop Dose Admin Lidocaine HCl 5 ml 01/01/19 13:25 01/01/19 13:31 Xylocaine-Mpf 1% INJECT 09/15/19 13:26 5 ml ONETIME ONE Administration Departure - Departure Time of Disposition: 13:53 Disposition: Home, Self-Care 01 Condition: Good Clinical Impression: Ear lobe laceration Qualifiers: Encounter type: initial encounter Laterality: right Qualified Code(s): S01.311A - Laceration without foreign body of right ear, initial encounter - Discharge Information *PRESCRIPTION DRUG MONITORING PROGRAM REVIEWED*: Not Applicable *COPY OF PRESCRIPTION DRUG MONITORING REPORT IN PATIENT WEI: Not Applicable Referrals: PCP,None [Primary Care Provider] - Forms: ED Department Discharge Additional Instructions: The following information is given to patients seen in the emergency department who are being discharged to home. This information is to outline your options for follow-up care. We provide all patients seen in our emergency department with a follow-up referral. The need for follow-up, as well as the timing and circumstances, are variable depending upon the specifics of your emergency department visit. If you don't have a primary care physician on staff, we will provide you with a referral. We always advise you to contact your personal physician following an emergency department visit to inform them of the circumstance of the visit and for follow-up with them and/or the need for any referrals to a consulting specialist. The emergency department will also refer you to a specialist when appropriate. This referral assures that you have the opportunity for follow-up care with a specialist. All of these measure are taken in an effort to provide you with optimal care, which includes your follow-up. Under all circumstances we always encourage you to contact your private physician who remains a resource for coordinating your care. When calling for follow-up care, please make the office aware that this follow-up is from your recent emergency room visit. If for any reason you are refused follow-up, please contact the Emergency Department at and asked to speak to the emergency department charge nurse. Take meds as directed, follow up with your primary care physician, return to ER if symptoms worsen or change. Primary Care [address] [place] [id number]
[2019-01-01 14:10] VITALS: BP 132/91; PULSE 82
== END 2019-01-01 14:11 | disposition home or self-care (01) ==
LOC: MW.ED 13:08
DX: S01.311A Laceration without foreign body of right ear, initial encounter (principal); E66.9 Obesity, unspecified; F17.210 Nicotine dependence, cigarettes, uncomplicated; Z68.30 Body mass index [BMI] 30.0-30.9, adult; W26.8XXA Contact with other sharp object(s), not elsewhere classified, initial encounter
CPT/HCPCS: 12013; 99282; J2001